=== PATIENT | female | born 1975 | race Caucasian/White ===

== ENCOUNTER → 2021-06-09 | Outpatient (CLI) | payer OTHER ==
--- NOTE | 2021-06-09 20:21 | MR ---
EXAMINATION TYPE: MR knee LT wo con DATE OF EXAM: 06/09/2021 COMPARISON: Outside bilateral knee x-ray May 21, 2021 HISTORY: Lt knee pain and swelling for 3 years per patient. TECHNIQUE: Multiplanar, multisequence imaging of the left knee is performed without IV contrast. FINDINGS: MEDIAL MENISCUS: Anterior and posterior horns are intact without tear. LATERAL MENISCUS: Anterior and posterior horns are intact without tear. CRUCIATE LIGAMENTS: The anterior and posterior cruciate ligaments are intact and unremarkable. COLLATERAL LIGAMENTS: The medial collateral ligament and lateral collateral ligament complex are inta ct and unremarkable. EXTENSOR MECHANISM: Visualized quadriceps and patellar tendons are intact. EFFUSION: Small suprapatellar joint effusion extends laterally. POPLITEAL CYST: No popliteal/kerns cyst. TRICOMPARTMENT SPACES: Mild to moderate tricompartment joint space loss without significant spurring. CARTILAGE: Tricompartment articular cartilage is preserved. BONE MARROW SIGNAL: Heterogeneity consistent with red marrow reconversion. No suspicious edema. OTHER: No additional significant abnormality is appreciated. IMPRESSION: No meniscal or ligamentous tear is seen. Mild to moderate tricompartment joint space loss .
== END | disposition home or self-care (01) ==
LOC: RADMRIMAIN 17:04
PROVIDERS: ATTEND Orthopaedic Surgery
DX: M25.562 Pain in left knee (principal)